=== PATIENT | female | born 1955 | race Caucasian/White ===

== ENCOUNTER 2016-12-15 08:13 | Emergency (ER) | payer OTHER ==
[2016-12-15] MEDS ORDERED: Adacel (T-DAP) 0.5 ML VIAL ONE (08:27)
[2016-12-15] MEDS ORDERED: Triple Antibiotic Oint 1 GM Packet ONE (08:34)
--- NOTE | 2016-12-15 09:02 | ERRECORD ---
[facility] EMERGENCY RECORD HPI FALL (08:28 JPIP) CHIEF COMPLAINT: Patient presents for evaluation of fall, from standing, landing on head, Patient presents for evaluation of Patients dog tripped her, she fell backwards and struck her head. No LOC. HISTORIAN: History provided by patient. LOCATION: Symptoms are localized, most severe to occiput. QUALITY: Pain is dull in nature. TIME COURSE: Sudden onset of symptoms, 1, hours prior to arrival, There has been no change in the patient's symptoms over time, are constant. SEVERITY: Current severity of pain rated as 4/10. ASSOCIATED WITH: No associated neck pain, No associated back pain, No associated shoulder pain, Associated with laceration(s), to the scalp, No associated alcohol use, No associated inability to ambulate, No associated inability to bear weight, No associated headache, No associated loss of consciousness, No associated near syncope, No associated syncope, No associated vomiting. EXACERBATED BY: Patient's condition exacerbated by nothing. RELIEVED BY: Patient's condition relieved by nothing. ROS (08:30 JPIP) EYES: Historian denies photophobia, denies vision changes. ENT: Historian denies otorrhea, denies rhinorrhea. CARDIOVASCULAR: Historian denies chest pain. RESPIRATORY: Historian denies cough, denies shortness of breath. GI: Historian denies nausea, denies vomiting. NEUROLOGIC: Historian denies confusion, denies dizziness, denies lethargy, denies mental status changes. NOTES: All systems reviewed, negative except as described above. PAST MEDICAL HISTORY MEDICAL HISTORY: Flu vaccine up to date, Tetanus immunization up to date, Pneumococcal vaccine not up to date, Past medical history includes history of diabetes, endocrine disease. hypothyroidism, Past medical history includes history of hypertension. (08:16 KMOR) FEMALE SURGICAL HISTORY: bladder repair, wisdom teeth. (08:16 KMOR) PSYCHIATRIC HISTORY: No previous psychiatric history. (08:16 KMOR) SOCIAL HISTORY: Patient denies alcohol use, Patient denies drug use, Patient has no smoking history. (08:16 KMOR) NOTES: Nursing records reviewed, Medication list reviewed. (08:33 JPIP) KNOWN ALLERGIES No Known Drug Allergies &a-1R&a+25V*p+0X*f5155X*c202B*c15G*c2P*p-0X&a-25V&a+1R Name: Shannan Hayes : 1955 F61 MedRec: [id number] AcctNum: [id number] Prepared: SunDec 15, 2016 08:57 by Interface Page 1 of 3 pMD [facility] EMERGENCY RECORD CURRENT MEDICATIONS levothyroxine: TABLET : Strength - 200 mcg : ORAL Patient Dose: 88 mcg Oral once a day. (08:16 KMOR) amLODIPine: TABLET : Strength - 10 mg : ORAL Patient Dose: 10 mg Oral once a day. (08:17 KMOR) hydrochlorothiazide: TABLET : Strength - 25 mg : ORAL Patient Dose: 25 mg Oral once a day. (08:17 KMOR) VITAL SIGNS (08:13 KMOR) VITAL SIGNS: BP: 148/99, Pulse: 67, Resp: 18, Temp: 98.7 (Oral), Pain: 4, O2 sat: 100 on Room Air, Time: 12/15/2016 08:13. PHYSICAL EXAM (08:30 JPIP) CONSTITUTIONAL: Vital signs reviewed, Patient afebrile, Pulse normal, Blood pressure, hypertensive, Respiratory rate normal, Patient appears in pain, in mild pain distress, Patient alert and oriented to person, place and time. HEAD: Head exam included findings of, no Adkins's sign, No raccoon eyes, Laceration to occipital, normocephalic. EYES: Eye exam included findings of eyelids normal to inspection, Pupils equally round and reactive to light, Left pupil 2 mm in size, Right pupil 2 mm in size, Extraocular muscles intact, Conjunctiva normal, Sclera normal, no periorbital ecchymosis, no periorbital edema, no periorbital erythema, no nystagmus. ENT: Ear exam normal, external ear normal, tympanic membranes normal, no foreign body, no drainage, no bleeding, Pharynx exam normal, not injected, no swelling, symmetrical, Uvula exam normal, midline, no edema, Mouth exam normal, mucous membranes moist. NECK: Neck exam included findings of normal range of motion, Trachea midline, no tenderness. RESPIRATORY CHEST: Respiratory exam included findings of no respiratory distress. UPPER EXTREMITY: capillary refill less than 2 seconds, Abrasions on the wrist, right wrist, radial. NEURO: Neuro exam findings include patient oriented to person, place and time, Gunner coma scale 15, Speech normal, Gait normal, Memory normal, no focal motor deficits, no nystagmus, CNII-XII intact. SKIN: Skin exam included findings of skin warm, dry, and normal in color, 3 occipital lesions, 1 small 2mm laceration, abrasion approx. 5mm and a 2 cm open laceration no FB no active bleeding. PSYCHIATRIC: Psychiatric exam included findings of patient oriented to person place and time, Normal affect. MEDICATION ADMINISTRATION SUMMARY &a-1R&a+25V*p+0X*b1755K*c202B*c15G*c2P*p-0X&a-25V&a+1R Name: Shannan Hayes : 1955 F61 MedRec: [id number] AcctNum: [id number] Prepared: SunDec 15, 2016 08:57 by Interface Page 2 of 3 pMD [facility] EMERGENCY RECORD Drug Name: Adacel(Tdap Adolesn/Adult)(PF), Dose Ordered: 0.5 mL, Route: Intramuscular, Status: Given, Time: 08:30 12/15/2016, Detailed record available in Medication Service section. PROBLEM LIST No recorded problems DIAGNOSIS (08:35 JPIP) FINAL: PRIMARY: scalp laceration, ADDITIONAL: head contusion. PRESCRIPTION No recorded prescriptions DISPOSITION PATIENT: Disposition Type: Discharge, Disposition: *Discharge Home, Condition: Good. (08:35 JPIP) Patient left the department. (08:53 OO) [place]: OO=AVILA Doe, February JPIP=DO Barnes Joseph KMOR=JACOB Bravo, Emma &a-1R&a+25V*p+0X*b6967T*c202B*c15G*c2P*p-0X&a-25V&a+1R Name: Shannan Hayes : 1955 F61 MedRec: [id number] AcctNum: [id number] Prepared: SunDec 15, 2016 08:57 by Interface Page 3 of 3 pMD MTDD
--- NOTE | 2016-12-15 09:08 | PICIS ---
[facility] EMERGENCY RECORD TRIAGE (08:14 KMOR) TRIAGE NOTES: Trip and fall from standing, hit back of head on [address]. No loc. (08:14 KMOR) PATIENT: NAME: Shannan Hayes, AGE: 61, GENDER: female, : Marie 1955, TIME OF GREET: SunDec 15, 2016 08:13, ETHNICITY: Not or , ECODE BILLING MAP: [facility], KG WEIGHT: 88.45, , , PERSON ID: [id number], PCP: SRAVANTHI. (08:14 KMOR) Zip Code: [facility], PHONE: . (08:38) COMPLAINT: HIGH RISK COMPLAINT: Head Injury. (08:14 KMOR) ADMISSION: URGENCY: 3 Urgent, ADMISSION SOURCE: Home, TRANSPORT: CAR, BED: ER -03. (08:14 KMOR) ASSESSMENT: Assessment: A&OX4. RR EVEN AND UNLABORED., Symptoms began 30 min ago. (08:16 KMOR) PAIN: Patient complains of pain described as, on a scale 0-10 patient rates pain as 4, Location BACK OF HEAD. (08:16 KMOR) SIRS SCORING: Heart Rate 55-109 (0), Temp range 96.8-101.1 (0), respiratory rate 12-24 (0), Mental Status altered: no (0), Infection or Suspected Infection: No. (08:16 KMOR) TRIAGE SCREENING: Patient denies suicidal ideation, Patient denies presence of domestic violence. (08:16 KMOR) LMP: LMP: Menopause. (08:16 KMOR) PROVIDERS: TRIAGE NURSE: Emma Bravo RN. (08:14 KMOR) VITAL SIGNS: BP 148/99, Pulse 67, Resp 18, Temp 98.7, (Oral), Pain 4, O2 Sat 100, on Room Air, Time 12/15/2016 08:13. (08:13 KMOR) KNOWN ALLERGIES No Known Drug Allergies CURRENT MEDICATIONS levothyroxine: TABLET : Strength - 200 mcg : ORAL Patient Dose: 88 mcg Oral once a day. (08:16 KMOR) amLODIPine: TABLET : Strength - 10 mg : ORAL Patient Dose: 10 mg Oral once a day. (08:17 KMOR) hydrochlorothiazide: TABLET : Strength - 25 mg : ORAL Patient Dose: 25 mg Oral once a day. (08:17 KMOR) VITAL SIGNS (08:13 KMOR) VITAL SIGNS: BP: 148/99, Pulse: 67, Resp: 18, Temp: 98.7 (Oral), Pain: 4, O2 sat: 100 on Room Air, Time: 12/15/2016 08:13. NURSING ASSESSMENT: SKIN (08:24 KMOR) CONSTITUTIONAL: Patient arrives ambulatory, Gait steady, History obtained from patient, Patient appears comfortable, Patient cooperative, Patient alert, Oriented to person, place and time, Skin warm, Skin dry, Skin normal in color, Mucous membranes pink, Mucous &a-1R&a+25V*p+0X*c5430M*c202B*c15G*c2P*p-0X&a-25V&a+1R Name: Shannan Hayes : 1955 F61 MedRec: [id number] AcctNum: [id number] Prepared: SunDec 15, 2016 09:03 by Interface Page 1 of 6 pMD [facility] EMERGENCY RECORD membranes moist, Patient is well-groomed, Patient complains of Head injury, Patient reports tripping and falling at 0730 and hitting back of head on rocks. No loc. PAIN: aching pain, back of head, on a scale 0-10 patient rates pain as 4. SKIN: Skin assessment findings include skin warm, Skin dry, Skin normal in color, Inspection findings include laceration, to back of head, length (cm) 2cm, bleeding controlled. NURSING PROCEDURE: DISCHARGE NOTE (08:48 AHOO) DISCHARGE: Patient discharged to home, ambulating without assistance, friend driving, accompanied by friend, Summary of Care printed/ provided, Transition record given to patient, Discharge instructions given to patient, Above person(s) verbalized understanding of discharge instructions and follow-up care, Patient treated and evaluated by physician. NURSING PROCEDURE: NEURO CHECK (08:26 KMOR) GCS/NEURO/PUPILS: Gunner Coma Scale:, Eye opening: (4) - Spontaneous, Verbal: (5) - Oriented/conversive, Motor: (6) - Obeys commands/Spontaneous, GCS Total: 15, Neuro check findings include movement normal to all extremities, Pupils equally round and reactive to light, Left pupil 2 mm in size, Right pupil 2 mm in size. NOTES: Patient tolerated procedure well. NURSING PROCEDURE: WOUND CARE (08:20 KMOR) PATIENT IDENTIFIER: Patient actively involved in identification process, Patient's identity verified by patient stating name, Patient's identity verified by patient stating date. TIMEOUT: Prior to procedure, correct patient verified by, patient stating name, patient stating date, Correct procedure verified, Correct site verified. WOUND CARE: Wound care indicated for preparing wound for repair, Wound care indicated to promote healing, Wound site: back of head`, Cause of wound: rocks, Wound cleansed with hydrogen peroxide, by JACOB Carter, Wound repaired with juan, by Dr. Barnes, using 1 staple gun, Last tetanus shot received less than 5 years ago. FOLLOW-UP: After procedure, on a scale 0-10 patient rates pain as 1. NOTES: Patient tolerated procedure well. ORDER DETAILS Order Name: chart element #1, Status: Active, Time: 08:20 12/15/2016, User: System, - Ordered for: DO Barnes Joseph, - Entered by: JACOB Bravo Krista - SunDec 15, 2016 08:20, - Quantity: 1, Order Name: chart element #4, Status: Active, Time: 08:20 12/15/2016, &a-1R&a+25V*p+0X*y4575C*c202B*c15G*c2P*p-0X&a-25V&a+1R Name: Shannan Hyaes : 1955 F61 MedRec: [id number] AcctNum: [id number] Prepared: SunDec 15, 2016 09:03 by Interface Page 2 of 6 pMD [facility] EMERGENCY RECORD User: System, - Ordered for: DO Barnes Joseph, - Entered by: JACOB Bravo Krista - SunDec 15, 2016 08:20, - Quantity: 1. MEDICATION ADMINISTRATION SUMMARY Drug Name: Adacel(Tdap Adolesn/Adult)(PF), Dose Ordered: 0.5 mL, Route: Intramuscular, Status: Given, Time: 08:30 12/15/2016, Detailed record available in Medication Service section. MEDICATION SERVICE Adacel(Tdap Adolesn/Adult)(PF): Order: Adacel(Tdap Adolesn/Adult)(PF) (diphthantuss(acell),tet vac/preservative free) - Dose: 0.5 mL : Intramuscular Schedule: Now Ordered by: Chas Barnes DO Entered by: Chas Barnes DO SunDec 15, 2016 08:24 , Acknowledged by: Danitza Doe LVN SunDec 15, 2016 08:36 Documented as given by: Danitza Doe LVN SunDec 15, 2016 08:30 Patient, Medication, Dose, Route and Time verified prior to administration. IM immunization, Amount given: 0.5ML, Medication administered to right deltoid, Vaccination information sheet given to patient, name of publication: [facility], retail product demo specialist: [employer], lot number: [id number], expiration: 04/04/2019, Correct patient, time, route, dose and medication confirmed prior to administration, Patient advised of actions and side-effects prior to administration, Allergies confirmed and medications reviewed prior to administration, Patient in position of comfort, Side rails up, Cart in lowest position, Family at bedside. : Follow Up : Response assessment performed, No signs or symptoms of allergic reaction noted. (08:48 AHOO) HPI FALL (08:28 JP) CHIEF COMPLAINT: Patient presents for evaluation of fall, from standing, landing on head, Patient presents for evaluation of Patients dog tripped her, she fell backwards and struck her head. No LOC. HISTORIAN: History provided by patient. LOCATION: Symptoms are localized, most severe to occiput. QUALITY: Pain is dull in nature. TIME COURSE: Sudden onset of symptoms, 1, hours prior to arrival, There has been no change in the patient's symptoms over time, are constant. SEVERITY: Current severity of pain rated as 4/10. ASSOCIATED WITH: No associated neck pain, No associated back pain, No associated shoulder pain, Associated with laceration(s), to the scalp, No associated alcohol use, No associated inability to ambulate, No associated inability to &a-1R&a+25V*p+0X*p0573N*c202B*c15G*c2P*p-0X&a-25V&a+1R Name: Shannan Hayes : 1955 F61 MedRec: [id number] AcctNum: [id number] Prepared: SunDec 15, 2016 09:03 by Interface Page 3 of 6 pMD [facility] EMERGENCY RECORD bear weight, No associated headache, No associated loss of consciousness, No associated near syncope, No associated syncope, No associated vomiting. EXACERBATED BY: Patient's condition exacerbated by nothing. RELIEVED BY: Patient's condition relieved by nothing. ROS (08:30 JPIP) EYES: Historian denies photophobia, denies vision changes. ENT: Historian denies otorrhea, denies rhinorrhea. CARDIOVASCULAR: Historian denies chest pain. RESPIRATORY: Historian denies cough, denies shortness of breath. GI: Historian denies nausea, denies vomiting. NEUROLOGIC: Historian denies confusion, denies dizziness, denies lethargy, denies mental status changes. NOTES: All systems reviewed, negative except as described above. PAST MEDICAL HISTORY MEDICAL HISTORY: Flu vaccine up to date, Tetanus immunization up to date, Pneumococcal vaccine not up to date, Past medical history includes history of diabetes, endocrine disease. hypothyroidism, Past medical history includes history of hypertension. (08:16 KMOR) FEMALE SURGICAL HISTORY: bladder repair, wisdom teeth. (08:16 KMOR) PSYCHIATRIC HISTORY: No previous psychiatric history. (08:16 KMOR) SOCIAL HISTORY: Patient denies alcohol use, Patient denies drug use, Patient has no smoking history. (08:16 KMOR) NOTES: Nursing records reviewed, Medication list reviewed. (08:33 JPIP) PHYSICAL EXAM (08:30 JPIP) CONSTITUTIONAL: Vital signs reviewed, Patient afebrile, Pulse normal, Blood pressure, hypertensive, Respiratory rate normal, Patient appears in pain, in mild pain distress, Patient alert and oriented to person, place and time. HEAD: Head exam included findings of, no Adkins's sign, No raccoon eyes, Laceration to occipital, normocephalic. EYES: Eye exam included findings of eyelids normal to inspection, Pupils equally round and reactive to light, Left pupil 2 mm in size, Right pupil 2 mm in size, Extraocular muscles intact, Conjunctiva normal, Sclera normal, no periorbital ecchymosis, no periorbital edema, no periorbital erythema, no nystagmus. ENT: Ear exam normal, external ear normal, tympanic membranes normal, no foreign body, no drainage, no bleeding, Pharynx exam normal, not injected, no swelling, symmetrical, Uvula exam normal, midline, no edema, Mouth exam normal, mucous membranes moist. NECK: Neck exam included findings of normal range of motion, Trachea midline, no tenderness. RESPIRATORY CHEST: Respiratory exam included findings of no &a-1R&a+25V*p+0X*f7653F*c202B*c15G*c2P*p-0X&a-25V&a+1R Name: Shannan Hayes : 1955 F61 MedRec: [id number] AcctNum: [id number] Prepared: SunDec 15, 2016 09:03 by Interface Page 4 of 6 pMD [facility] EMERGENCY RECORD respiratory distress. UPPER EXTREMITY: capillary refill less than 2 seconds, Abrasions on the wrist, right wrist, radial. NEURO: Neuro exam findings include patient oriented to person, place and time, Gunner coma scale 15, Speech normal, Gait normal, Memory normal, no focal motor deficits, no nystagmus, CNII-XII intact. SKIN: Skin exam included findings of skin warm, dry, and normal in color, 3 occipital lesions, 1 small 2mm laceration, abrasion approx. 5mm and a 2 cm open laceration no FB no active bleeding. PSYCHIATRIC: Psychiatric exam included findings of patient oriented to person place and time, Normal affect. EVENTS TRANSFER: Triage to Emergency Emergency Room -03. (SunDec 15, 2016 08:14 KMOR) Removed from Emergency Emergency Room -03. (08:53 [facility]) O2SAT INTERPRETATION (08:33 JPIP) O2SAT: Single pulse oximetry, Oxygen saturation 100%, on room air, Oxygen saturation interpretation: Normal, No intervention required. LACERATION-SINGLE REPAIR (08:33 JPIP) TIMEOUT: Side and/or site verified, Patient identification confirmed, Sterile procedures observed. LACERATION REPAIR: Side and/or site verified, Patient identification confirmed, Sterile procedures observed, Verbal consent obtained, No contamination, Wound irrigated with normal saline, Laceration repair with juan, using 3 juan, to occiput, total length 2.0 cm, After procedure, wound well approximated, antibiotic ointment applied, Tetanus status not up to date, tetanus immunization ordered, Patient tolerated the procedure well, No foreign body present. PROBLEM LIST No recorded problems DIAGNOSIS (08:35 JPIP) FINAL: PRIMARY: scalp laceration, ADDITIONAL: head contusion. DISPOSITION PATIENT: Disposition Type: Discharge, Disposition: *Discharge Home, Condition: Good. (08:35 JPIP) Patient left the department. (08:53 AHOO) INSTRUCTION (08:28 JPIP) DISCHARGE: SCALP LACERATION STITCHES OR JUAN. &a-1R&a+25V*p+0X*q4677Z*c202B*c15G*c2P*p-0X&a-25V&a+1R Name: Shannan Hayes : 1955 F61 MedRec: [id number] AcctNum: [id number] Prepared: SunDec 15, 2016 09:03 by Interface Page 5 of 6 pMD [facility] EMERGENCY RECORD SPECIAL: Staple removal in 10 days Return to the Emergency Department for increased symptoms problems or concerns Take acetaminophen or ibuprofen for pain Follow-up with your PCP. PRESCRIPTION No recorded prescriptions IMAGING TETANUS CONSENT: Image captured from scanner. (08:38 AHOO) *DISCHARGE INSTRUCTIONS RECEIPT: Image captured from scanner. (08:51 AHOO) *SUPPLY CHARGE SHEET: Image captured from scanner. (08:51 AHOO) [place]: AHOO=AVILA DoeFebruary JPIP=DO Barnes Joseph KMOR=JACOB Bravo, Emma &a-1R&a+25V*p+0X*m2209A*c202B*c15G*c2P*p-0X&a-25V&a+1R Name: Shannan Hayes : 1955 F61 MedRec: [id number] AcctNum: [id number] Prepared: SunDec 15, 2016 09:03 by Interface Page 6 of 6 pMD MTDD
== END 2016-12-15 08:48 | disposition home or self-care (01) ==
LOC: BURERS 08:13
DX: S01.01XA Laceration without foreign body of scalp, initial encounter (principal); E11.9 Type 2 diabetes mellitus without complications; E03.9 Hypothyroidism, unspecified; I10 Essential (primary) hypertension; W18.30XA Fall on same level, unspecified, initial encounter
CPT/HCPCS: 12001; 90471; 90715